=== PATIENT | female | born 1970 | race Caucasian/White ===

== ENCOUNTER → 2016-10-27 | Day surgery (SDC) | payer OTHER ==
[~2016-10-27] VITALS: Ht 165.1 cm; Wt 63.5 kg
[~2016-10-27] MED LIST: CLARITIN10 M1 PO; COLACE100 M1 PO; DULERA 100 MCG/13 GM INH; FIBRO-TABS1 TAB PO; FLEXERIL10 MG PO; FUROSEMIDE20 M1 PO; HAIR VITAMINS E1 TAB PO; HYDROCODON-ACE1 EAC2 PO; HYGROTON 25MG T25 MG PO; IRON325 M3 PO; MULTIVITAMIN1 TAB PO; NORCO 325 MG-51 TAB PO; PANTOPRAZOLE SO40 M1 PO; PANTOPRAZOLE SO40 MG PO; PEPCID20 M1 PO; PREDNISONE10 M2 PO; PROAIR HFA8.5 GM INH; PROBIOTIC FORMU1 CA1 PO; SINGULAIR10 M1 PO; VISTARIL25 M1 PO; VITAMIN B COMPL1 CAP PO; VOLTAREN75 MG PO; ZYRTEC10 M3 PO
--- NOTE | 2016-10-27 06:24 | History & Physical Pre-Op ---
General Information and HPI History of Present Illness: Sarah is a 46-year-old female with a long-standing and worsening complaint of recurrent ingrown nails to her left third digit. The patient has undergone multiple in office procedures, with however multiple recurrences, including those requiring courses of by mouth antibiotics. The patient presents today for preoperative surgical consultation. Allergies/Medications Allergies: Coded Allergies: Penicillins (Intermediate, HIVES 08/05/15) adhesive (Intermediate, RASH 10/26/15) peanut (Intermediate, HIVES 10/26/15) sulfamethoxazole (Intermediate, HIVES 08/05/15) Fish Containing Products (THROAT SWELLING 04/20/16) amoxicillin (HIVES 08/05/15) erythromycin base (INCREASED HR 08/05/15) Home Med list Albuterol Sulfate (Proair Hfa) 90 MCG HFA.AER.AD 1-2 PUF INH AD PRN RESPIRATORY (Reported) Cetirizine HCl (Zyrtec) 10 MG TABLET 1 TAB PO DAILY ALLERGIES (Reported) Docusate Sodium (Colace) 100 MG CAPSULE 1-2 CAP PO AD PRN STOOL SOFTENER ( Reported) Famotidine (Pepcid) 20 MG TABLET 1 TAB PO DAILY GERD (Reported) Ferrous Sulfate (IRON) (Unknown Strength) TABLET (Unknown Dose) PO AD SUPPLEMENT (Reported) Furosemide 20 MG TABLET 2 TAB PO AD DIURETICS (Reported) Mometasone/Formoterol (Dulera 100 Mcg/5 Mcg Inhaler) 100 MCG-5 MCG/ACTUATION HFA.AER.AD 2 PUF INH BID ASTHMA (Reported) Montelukast Sodium (Singulair) 10 MG TABLET 1 TAB PO DAILY ASTHMA (Reported) Multivitamin (Multiple Vitamins) 1 EACH TABLET 1 TAB PO DAILY SUPPLEMENT ( Reported) Past History Medical History Neurological: NONE EENT: NONE Cardiovascular: NONE Respiratory: asthma, COLD INDUCED ASTHMA Gastrointestinal: NONE Hepatic: cholelithiasis Renal: nephrolithiasis Musculoskeletal: PINCHED NERVE L4/L5 Psychiatric: NONE Endocrine: NONE Blood Disorders: anemia, IRON DEFICIENCY ANEMIA Cancer(s): NONE 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 Heart sounds rate and rhythm regular. Lower extremity physical exam demonstrates intact pedal pulses bilaterally. Pulses dorsalis pedis and posterior tibial arteries are palpable bilaterally. Patient without any sensory motor deficits. Deep tendon reflexes grossly intact. Patient noted to have significant pain with palpation to the left third digit, with onychocryptosis identified. Assessment/Plan Assessment/Plan: Chronic and recurrent ingrown nail left third digit. A lengthy discussion reviewing both surgical and conservative options was held the patient at bedside and the patient elects to go forward with surgery despite the risks. As Ranked By This Provider Problem List: 1. Ingrowing nail Attending MD Review Statement Attending Statement Attending MD Statement: examined this patient
--- NOTE | 2016-10-27 08:21 | Operative Report ---
Operative/Inv Procedure Report Surgery Date: 10/27/16 Name of Procedure: 1 local random advancement flap closure of open surgical wound left foot 2 cold steel procedure left third digit 3 intraoperative administration of ankle block anesthesia Pre-Operative Diagnosis: 1 onychocryptosis left third digit Post-Operative Diagnosis: The same Estimated Blood Loss: scant Surgeon/Communications Supervisor: BJ RENO DPM Anesthesia: moderate sedation, block Operative/Procedure Note Note: After obtaining informed consent the patient was brought to the operating room and placed on the operating table in the supine position. The patient was then securely fastened to the operating table utilizing safety belt. After administration of IV sedation, 10 mL of 0.5% Marcaine plain was infiltrated about the patient's left ankle. Attention was directed to the left third digit where a partial temporary nail avulsion was performed at the medial aspect of the left third digit. The foot was then scrubbed and prepped and draped in usual aseptic manner. A Eleno drain was placed about the third digit at the level of the metatarsophalangeal joint. A Gomez type incision was marked out to sharply excise the matrix cells from the medial third digit. The curet was utilized to remove any remaining matrix cells. The wound was then irrigated with copious Svensson normal sterile saline. A plantar medial flap was then developed with undermining, release of the morning ligaments and mobilization of the adjacent tissues. The flap was rotated superiorly and held at its deep aspect with 4-0 Vicryl. The skin edges were then reapproximated 4-0 nylon. Incision was dressed with Xeroform 4 x 4's Kerlix and an Christiano wrap. The patient was noted to tolerate both procedure and anesthesia well and the patient was transported from the operating room to recovery with vital signs stable best assess intact to the medial flap.
== END ==
LOC: STS 01:23
DX: L60.0 Ingrowing nail (principal); J45.909 Unspecified asthma, uncomplicated; D50.9 Iron deficiency anemia, unspecified
CPT/HCPCS: J2001; J2250

== ENCOUNTER → 2016-12-08 | Day surgery (SDC) | payer OTHER ==
[~2016-12-08] VITALS: Ht 165.1 cm; Wt 63.5 kg
[~2016-12-08] MED LIST changes: +GABAPENTIN
--- NOTE | 2016-12-08 12:35 | ULTRASOUND REPORT ---
EXAMINATION: US RETROPERITONEAL COMPLETE (RENAL) CLINICAL INFORMATION: Kidney stones/ESWL. COMPARISON: Renal ultrasound 04/08/2016. CT abdomen and pelvis 10/26/2015. TECHNIQUE: Real-time imaging of the kidneys and bladder. FINDINGS: RIGHT KIDNEY: 11.5 x 5.8 x 5.7 cm (SAG x AP x TRV). The kidney is normal in size, contour, and echogenicity. Renal cortical thickness is normal. There is a small echogenic focus in the mid to lower pole of the left kidney, measuring approximately 0.3 cm, possibly a small calculus. There is more ill-defined echogenic region in the lower pole of the left kidney measuring 0.8 cm which could also represent a subtle calculus but does not shadow and the etiology is otherwise uncertain. There is no hydronephrosis. LEFT KIDNEY: 11.4 x 6.7 x 4.8 cm (SAG x AP x TRV). The kidney is normal in size, contour, and echogenicity. Renal cortical thickness is normal. No calculi or focal parenchymal lesions. No hydronephrosis. BLADDER: Well-distended and normal. Bilateral ureteral jets are not demonstrated. Prevoid bladder volume is 106 mL. Postvoid bladder volume is 0 mL. IMPRESSION: 1. There are 2 possible right renal calculi as described above. No hydronephrosis. 2. Unremarkable left kidney and bladder.
--- NOTE | 2016-12-08 15:04 | RADIOLOGY REPORT ---
EXAMINATION: XR KIDNEYS, URETER, BLADDER CLINICAL INDICATION: Kidney stones. COMPARISON: Renal ultrasound also obtained 12/08/2016 and plain films of the abdomen 04/08/2016. TECHNIQUE: AP view of the abdomen. FINDINGS: There is a gastric band in the left upper abdomen, which is unchanged in alignment. Tubing and port from the band are noted extending to the lower mid abdomen. There are cholecystectomy clips in the right upper quadrant. There are 2 well-defined calcifications projected over the region of the lower pole of the right kidney which measure 0.5 and 0.6 cm. These are unchanged compared to the prior study. No abnormal calcifications are noted projected over the left kidney. There is a 0.3 cm calcification projected in the upper right pelvis just lateral to the lower sacrum. A similar calcification is noted more laterally on the prior study. A 0.2 cm calcification laterally in the left pelvis is unchanged. No other abnormal calcifications are seen in the pelvis. IMPRESSION: 1. The study redemonstrates small calcifications projected over the lower pole of the right renal region, which may be consistent with renal calculi. These are unchanged. 2. Small calcifications in the pelvis are likely phleboliths. 3. No interval change in the gastric band or cholecystectomy clips.
--- NOTE | 2016-12-08 17:09 | Operative Report ---
Operative/Inv Procedure Report Surgery Date: 12/08/16 Name of Procedure: right renal ESWL: fluorosocpy Pre-Operative Diagnosis: right stone with colic Post-Operative Diagnosis: same Estimated Blood Loss: none Surgeon/Scientific Illustrator: ЕЛЕНА LANE MD Anesthesia: moderate sedation Complications: none Operative/Procedure Note Note: The patient was taken to the operating room placed on the OR table in supine position. Timeout was performed, with the patient awake, in order to confirm correct procedure, laterality, anesthesia, and other pertinent perioperative information. After adequate anesthesia and antibiotics, the patient was then positioned over the ESWL table cutout overlying the treatment dome. Fluoroscopy , using AP and oblique views, as well as renal ultrasound, or performed in order to locate the stone. The position of the stone was optimized and positioned in the middle of the ESWL crosshairs. The stone was measured to be approximately 7 mm in size. ESWL was initiated at low power, and after 200 shockwaves delivered , noting the patient's tolerance to the shockwaves, the power was increased to maximum. At the end of 2500 shockwaves, fluoroscopy confirms the change in consistency of the stone, indicating shattering of the stone. The patient tolerated this procedure well and was taken to the in satisfactory condition. Discharge Disposition: PACU CC: ЕЛЕНА LANE MD
== END ==
LOC: STS 10:00
DX: N20.0 Calculus of kidney (principal); Z87.442 Personal history of urinary calculi; N23 Unspecified renal colic; J45.909 Unspecified asthma, uncomplicated; Z98.84 Bariatric surgery status
CPT/HCPCS: 74000; 76775; J2250

== ENCOUNTER → 2017-06-29 | Day surgery (SDC) | payer OTHER ==
[~2017-06-29] VITALS: Ht 165.1 cm; Wt 68.9 kg
[~2017-06-29] MED LIST changes: +ALLOPURINOL100 M1 PO; +DULERA 200 MCG/13 GM INH; +HAIR SKIN NAIL1 EACH PO; +IBUPROFEN600 M1 PO; +LASIX40 M1 PO; +LEVSIN0.125 M1 PO; +LINZESS145 MC1 PO; +MESTINON60 M1 PO; +MULTIPLE VITAM1 EAC2 PO; -MULTIVITAMIN1 TAB PO; +PAZEO2.5 ML OU; +PRILOSEC OTC20 M1 PO; +PROBIOTIC1 EACH PO; +VITAMIN B-121000 MC4 PO; +VITAMIN C500 M8 PO; +XYZAL5 M1 PO
--- NOTE | 2017-06-29 13:39 | Operative Report ---
Operative/Inv Procedure Report Surgery Date: 06/29/17 Name of Procedure: Cystoscopy. I lateral retrograde pyelogram. Bilateral flexible ureteroscopy. Right renal stone extraction with basket. Fluoroscopy. Laser standby. Pre-Operative Diagnosis: Bilateral renal colic. Post-Operative Diagnosis: To right renal pelvis stones each measuring 4 mm. Estimated Blood Loss: scant Surgeon/Nail Mill Worker: Con Melara MD Anesthesia: laryngeal mask airway Specimens: Right renal stones Condition: None Operative/Procedure Note Note: The patient was taken to the operating room and placed on the OR table in supine position. Timeout was performed, with the patient awake, in order to confirm correct identity, procedure, laterality, and other pertinent manfred-operative information. After adequate anesthesia and IV antibiotics, the patient was then placed in lithotomy stirrups, draped and prepped in the usual surgical fashion. The Holmium Yag Laser was confirmed in the room and on standby. A 22 Monegasque cystoscope sheath with 30 angle lens was inserted into the bladder without difficulty. Upon entering the bladder, the bladder was noted to be free of tumor , and free of stone. Both orifices were in their orthotopic position, with clear efflux of urine from the right, and left side. The left ureter orifice was intubated with a tiger tail ureteral access catheter, and a retrograde pyelogram with fluoroscopy was performed: revealing mild hydronephrosis, but no filling defects. The tiger tail catheter was advanced into the left renal pelvis , where selective cytology was obtained. Through the tiger tail catheter, a 0.035 Glidewire, which inserted, was advanced into the left renal pelvis without difficulty, with fluoroscopic visualization. Leaving the Glidewire in place, the tiger tail catheter, and cystoscope was removed. The Flexible ureteroscope was railroaded over the gluidewire, following it with fluoroscopic visualization , into the bladder, up the left ureter, and into the left renal pelvis, with fluoroscopy visualization. Pyeloscopy and calyxoscopy of the upper, middle, and lower poles reveal no evidence of tumor, no evidence of stones. Additionally, NO other stones, nor any tumor was visualized in the renal pelvis. The entire length of the ureter was also visualized carefully on the way out, and the same findings (no stones or tumor) was confirmed. The 22 Monegasque cystoscope was then reinserted into the bladder. The right ureter orifice was intubated with a second tiger tail ureteral access catheter, and a retrograde pyelogram with fluoroscopy was performed: revealing mild hydronephrosis, but no filling defects. The tiger tail catheter was advanced into the right renal pelvis, where selective cytology was obtained. Through the tiger tail catheter, a 0.035 Glidewire, which inserted, was advanced into the right renal pelvis without difficulty, with fluoroscopic visualization. Leaving the Glidewire in place, the second tiger tail catheter, and cystoscope was removed. The Flexible ureteroscope was railroaded over the gluidewire, following it with fluoroscopic visualization, into the bladder, up the right ureter, and into the right renal pelvis, with fluoroscopy visualization. Pyeloscopy and calyxoscopy of the upper, middle, and lower poles reveal no evidence of tumor, no evidence of stones. As the flexible ureteroscope was retracted, a 3 mm stone was seen in the distal right ureter. A Bard 0 tip basket was inserted through the flexible ureteroscope and deployed. The stone was grasped by the basket. The ureteroscope along with the basket and stone were slowly extracted from the right side noting that there were no additional stones, nor tumors, in the right collecting system. The stone was subsequently sent to pathology for analysis. No additional stones were seen, therefore, the YAG laser was disengaged. The bladder was then drained, and urojet lidocaine was instillend into the urethra. All sponge needle and instrument count were correct at the end of the case. The patient tolerated the procedure well, was then taken to the recovery room in satisfactory condition. The patient is to follow up in 4 weeks for POC. Discharge Disposition: PACU CC: Con Melara MD
== END ==
LOC: STS 01:12
DX: N13.2 Hydronephrosis with renal and ureteral calculous obstruction (principal); J45.909 Unspecified asthma, uncomplicated
CPT/HCPCS: 74018; J0131; J1100; J1885; J2250